=== PATIENT | female | born 1970 | race Caucasian/White ===

== ENCOUNTER 2024-08-08 18:05 | Emergency (ER) | payer OTHER, SELFPAY ==
--- NOTE | ~2024-08-08 | XR_ITS ---
EXAMINATION: XR ankle LT min 3V DATE: 08/08/2024 18:44 INDICATION: Generalized left ankle pain post fall TECHNIQUE: Anteroposterior, oblique, mortise, and lateral views of the left ankle were obtained. COMPARISON: None. FINDINGS: Oblique fracture through distal left ureter metadiaphysis with 4 mm lateral displacement. No other fr actures identified. Alignment is otherwise unremarkable with congruent ankle mortise. Joint spaces ar e relatively preserved. Small Achilles calcaneal spur. Soft tissue swelling about the ankle. No ankle joint effusion. IMPRESSION: 1. 4 mm lateral displacement of an oblique fracture of the distal left fibular metadiaphysis. Reviewed, dictated and finalized at location A. UND SALES ADVISOR
--- OUTSIDE RECORDS SUMMARY | 2024-08-08 18:13 | XMS_ITS | Clinical Summary ---
Author Organization [facility] Care Team Providers Care Table Runner Name Role Phone Unavailable Primary Care Provider Unavailabl e Social History Tobacco Use Types Packs/Day Years Used Date Smoking Tobacco: Never Assessed Comments Unknown Sex and Gender Information Value Date Recorded Sex Assigned at Not on file Legal Sex Female 1:32 PM COLLECTIONS AGENT Gender Identity Not on file Sexual Orientation Not on file Plan of Treatment Health Maintenance Due Date Last Done Comments Hepatitis C Virus (HCV) Screening 1969 Hepatitis B Immunization (1 of 3 - 19+ 3-dose series) 01/10/1988 Pap Smear 1990 Cervical Cancer Screening (CCS) 1999 HPV/Cotest 1999 Colonoscopy 2014 Colorectal Cancer Screening 2014 Cologuard 2019 Immunochemical Fecal Occult Blood 2019 Mammogram 2019 Pneumococcal Immunization (5 0+ years) (1 of 1 - PCV) 2019 Zoster Immunization (1 of 2) 2019 Influenza Immunization (#1) 2024 SARS-COV-2 Immunization ( - season) 2024 Respiratory Syncytial Virus (RSV) Immunization (Adult) (1 - 1-dose 75+ series) 01/10/2044 DTaP/Tdap/Td Immunization Discontinued 06/21/2019 TdaP Immunization Completed 06/21/2019 Meningococcal Immunization (ACWY) Aged Out No longer eligible based on patient's age to complete this topic Pneumococcal Immunization Combined Aged Out No longer eligible based on patient's age to complete this topic Rotavirus Immunization Aged Out No lo nger eligible based on patient's age to complete this topic
--- OUTSIDE RECORDS SUMMARY | 2024-08-08 18:13 | XMS_ITS | Patient Health Summary ---
Author Organization [facility] Address [address] [place] [address] Care Team Providers Care Pathology Laboratory Aides Teacher Name Role Phone Unavailable Primary Care Provider Unavailabl e Note from [facility],non-owned Affiliates and Associated Physician Practices is amultiple site organization consisting of ambulatory clinics and hospital sitesin [place], [place], [place] and [place]. This disclosure is being madepursuant to the Care Everywhere program and may not contain all information available regarding this patient. Last updated 18.[facility] Social History Tobacco Use Types Packs/Day Years Used Date Smoking Tobacco: Never Assessed Sex and Gender Information Value Date Recorded Sex Assigned at Not on file Gender Identity Not on file Sexual Orientation Not on file Procedures * DERMATOPATHOLOGY(Performed 11/27/2021) Results * DERMATOPATHOLOGY (11/27/2021 3:33 AM CDT) Case Report Dermatopathology Report Case: [id number] Authorizing Provider: Lito Samayoa MD Collected: 11/27/2021 03:33 AM Ordering Location: [facility] Lab Received: 11/28/2021 06:40 AM Pathologist: Lulu hWite MD Specimen: Skin, left wrist 2 4:01 PM CDT DERMATOPATHOLOGY LABORATORY Final Diagnosis Specimen A. SKIN, left wrist: EOSINOPHILIC SPONGIOSIS AND PAPILLARY DERMAL EDEMA (L30.8) (see microscopic description and comment) 2 4:01 PM CDT DERMATOPATHOLOGY LABORATORY Clinical History BP vs. ACD vs. Other. Path# [id number] 2 4:01 PM CDT DERMATOPATHOLOGY LABORATORY Gross Description Specimen A: Received is one formalin filled container labeled with the patient's name and designated left wrist. The specimen consists of a shave biopsy measuring [id number]. Jar 0. 2 4:01 PM T DERMATOPATHOLOGY LABORATORY Microscopic Description Specimen A. SKIN, left wrist: There is focal parakeratosis and spongiosis. The dermis shows a superficial and deep, perivascular and interstitial infiltrate of lymphocytes and eosinophils. Many of the eosinophils are present in the papillary dermis and occasional eosinophils are noted within the epidermis. There is significant papillary dermal edema. Grocott's methenamine silver (GMS) stain is negative for fungal elements in the sections examined. COMMENT: The histological differential diagnosis includes contact dermatitis, nummular eczema, arthropod bite reaction, the urticarial phase of bullous pemphigoid, and a hypersensitivity reaction. If there is clinical concern for a diagnosis of bullous pemphigoid consideration should be given to submitting tissue for direct immunofluorescence. 2 4:01 PM T DERMATOPATHOLOGY LABORATORY Disclaimer An external and internal positive and negative controls are appropriate for the histochemical, immunohistochemical and immunofluorescence stain(s) in this case (if any), except where stated explicitly. The performance characteristics of the stain(s) cited in this report were developed and its performance characteristic determined by the Dermatopathology Laboratory at [facility], directed by Dr. Stephanie Worley. These tests need not be, and therefore are not, approved by the [place] Food and Drug Administration. The tests are used for clinical purposes. Billing Codes Specimen Charges Stain Charges 31070 1 95634 1 2 4:01 PM CDT DERMATOPATHOLOGY LABORATORY Embedded Images 2 4:01 PM CDT DERMATOPATHOLOGY LABORATORY Pathology/Cytolo gy TISSUE SPECIMEN FROM SKIN / Unknown 11/27/2021 3:33 AM CDT 11/28/2021 6:40 AM CDT Lito Samayoa MD LAB - PATHOLOGY/CYTO LOGY ORDERABLES DERMATOPATHOLOGY LABORATORY [facility] - Department of Dermatology [address], [address] [phone]
--- OUTSIDE RECORDS SUMMARY | 2024-08-08 18:13 | XMS_ITS | Referral Summary ---
Author Organization [facility] Address [address] [facility] [place] [address] Care Team Providers Care Production Engine Repairer Name Role Phone Unavailable Primary Care Provider Unavailabl e Source Comments [facility] and Associated Physician Practices is amultiple site organization consisting of ambulatory clinics and hospital sitesin [place], [place], [place] and [place]. This disclosure is being madepursuant to the Care Everywhere program and may not contain all information available regarding this patient. Last updated 18.[facility] [employer] Social History Tobacco Use Types Packs/Day Years Used Date Smoking Tobacco: Never Assessed Sex and Gender Information Value Date Recorded Sex Assigned at Not on file Gender Identity Not on file Sexual Orientation Not on file Plan of Treatment Not on file
--- OUTSIDE RECORDS SUMMARY | 2024-08-08 18:13 | XMS_ITS | Clinical Summary ---
Author Organization [email or web address] Address [address] [place] [address] Care Team Providers Care Urban Gardening Specialist Name Role Phone Unavailable Primary Care Provider Unavailabl e Source Comments [email or web address],non-owned Affiliates and Associated Physician Practices is amultiple site organization consisting of ambulatory clinics and hospital sitesin [place], [place], [place] and [place]. This disclosure is being madepursuant to the Care Everywhere program and may not contain all information available regarding this patient. Last updated 18.[facility] Social History Tobacco Use Types Packs/Day Years Used Date Smoking Tobacco: Never Assessed Sex and Gender Information Value Date Recorded Sex Assigned at Not on file Gender Identity Not on file Sexual Orientation Not on file Plan of Treatment Health Maintenance Due Date Last Done Comments COLOGUARD (AGES 45-75) - COL ON CA SCREENING 1969 COLON MONITORING 1969 COLONOSCOPY - COLON CA SCREENING 1969 CT COLONOGRAPHY - COLON CA SCREENING 1969 Colorectal Cancer Screening 1969 FIT - COLON CA SCREENING 1969 FLEX SIG - COLON CA SCREENING 1969 LIPID TESTING 1969 MAMMOGRAM 1969 PAP SMEAR 1969 HIV SCREENING 01/10/1984 HEPATITIS C SCREENING 01/05/1987 DTAP/TDAP/TD VACCINES (1 - Tdap) 01/10/1988 HEPATITIS B VACCINE (1 of 3 - 19+ 3-dose series) 01/10/1988 PNEUMOCOCCAL VACCINE 50+ (1 of 1 - PCV) 2019 ZOSTER VACCINE (1 of 2) 2019 COVID-19 VACCINE ( - 2023-2 5 season) 2024 INFLUENZA VACCINE (#1) 2024 DEPRESSION SCREENING 06/23/2024 HIB VACCINE Aged Out No longer eligi ble based on patient's age to complete this topic HPV VACCINE Aged Out No longer eligi ble based on patient's age to complete this topic MENINGOCOCCAL (Group B) VACCINE Aged Out No longer eligible based on patient's age to complete this topic MENINGOCOCCAL VACCINE Aged Out No nila beth eligible based on patient's age to complete this topic PNEUMOCOCCAL VACCINE Aged Out No long er eligible based on patient's age to complete this topic
--- OUTSIDE RECORDS SUMMARY | 2024-08-08 18:13 | XMS_ITS | Encounter Summary ---
Author Organization [facility] Address [address] [facility] [place] [address] Care Team Providers Care Electrical Assembly Supervisor Name Role Phone Unavailable Primary Care Provider Unavailabl e Encounter Details Date Type Department Care Team (Late st Contact Info) Description 11/28/2021 Lab Requisition [facility] [address] [facility] [place] [phone] Lito Samayoa MD [id number] [place] [id number] Social History Tobacco Use Types Packs/Day Years Used Date Smoking Tobacco: Never Assessed Sex and Gender Information Value Date Recorded Sex Assigned at Not on file Gender Identity Not on file Sexual Orientation Not on file documented as of this encounter Plan of Treatment Not on file documented as of this encounter Procedures Procedure Name Priority Date/Time Associated Diagnosis Comments DERMATOPATHOLOGY Routine 11/27/2021 3:33 AM CDT documented in this encounter Results * DERMATOPATHOLOGY (11/27/2021 3:33 AM CDT) Case Report Dermatopathology Report Case: [id number] Authorizing Provider: Lito Samayoa MD Collected: 11/27/2021 03:33 AM Ordering Location: [facility] Received: 11/28/2021 06:40 AM Pathologist: Lulu White MD Specimen: Skin, left wrist 2 4:01 PM CDT DERMATOPATHOLOGY LABORATORY Final Diagnosis Specimen A. SKIN, left wrist: EOSINOPHILIC SPONGIOSIS AND PAPILLARY DERMAL EDEMA (L30.8) (see microscopic description and comment) 2 4:01 PM CDT DERMATOPATHOLOGY LABORATORY Clinical History BP vs. ACD vs. Other. Path# [id number] 2 4:01 PM T DERMATOPATHOLOGY LABORATORY Gross Description Specimen A: Received is one formalin filled container labeled with the patient's name and designated left wrist. The specimen consists of a shave biopsy measuring [id number]. Jar 0. 2 4:01 PM [facility] DERMATOPATHOLOGY LABORATORY Microscopic Description Specimen A. SKIN, [...] tissue for direct immunofluorescence. 2 4:01 PM [facility] DERMATOPATHOLOGY LABORATORY Disclaimer An external and internal positive and negative controls are appropriate for the histochemical, immunohistochemical and immunofluorescence stain(s) in this case (if any), except where stated explicitly. The performance characteristics of the stain(s) cited in this report were developed and its performance characteristic determined by the Dermatopathology Laboratory at [facility], directed by Dr. Stephanie Worley. These tests need not be, and therefore are not, approved by the [place] Food and Drug Administration. The tests are used for clinical purposes. Billing Codes Specimen Charges Stain Charges 42670 1 21238 1 2 4:01 PM CDT DERMATOPATHOLOGY LABORATORY Embedded Images 2 4:01 PM T DERMATOPATHOLOGY LABORATORY Pathology/Cytolo gy TISSUE SPECIMEN FROM SKIN / Unknown 11/27/2021 3:33 AM CDT 11/28/2021 6:40 AM CDT Lito Samayoa MD LAB - PATHOLOGY/CYTO LOGY ORDERABLES DERMATOPATHOLOGY LABORATORY [facility] - Department of Dermatology [address] [phone] documented in this encounter Visit Diagnoses Not on filedocumented in this encounter
--- OUTSIDE RECORDS SUMMARY | 2024-08-08 18:13 | XMS_ITS | Referral Summary ---
Author Organization [facility] [address] [facility] Address [address] [place] [address] Care Team Providers Care Process Control Supervisor Name Role Phone Carlos Eduardo Fox MD Primary Care Provider [phone] Allergies No known active allergies Medications meclizine (ANTIVERT) 25 mg tablet Take 1 tablet (25 mg total) by mouth 3 (three) times a day as needed for dizziness 30 tablet 11/20/19 23 Active atorvastatin (LIPITOR) 10 mg tabletIndications:Pure hypercholesterolemia Take 1 tablet (10 mg total) by mouth daily 90 tablet 4 07/28/19 24 Active Active Problems Problem Noted Date Diagnosed Date Class 1 obesity due to exces s calories without serious comorbidity with body mass index (BMI) of 32.0 to 32.9 in adult 07/22/2023 Assessment & Plan (07/22/2023 2:24 PM HEEL SCOURER): Weight is stable, encouraged healthy diet and regular exercise. Encounter to establish care 07/22/2023 Assessment & Plan (07/22/2023 2:26 PM HEEL SCOURER): Encounter to reestablish care, updated/reviewed medical history. Reviewed recommended screenings and vaccinations. -declines mammogram, see discussion above -no history of colon cancer screening, agreeable to C scope and referral placed. -encouraged patient to schedule well-woman/Pap for cervical cancer screening Benign paroxysmal positional vertigo due to bilateral vestibular disorder 07/22/2023 Assessment & Plan (07/22/2023 2:27 PM HEEL SCOURER): Symptoms are improved at this time, some vertigo symptoms when rolling in bed. Has not required meclizine recently. States that meclizine works very well for her when needed. Recommended she perform exercises periodically, Ha maneuver at home before going to bed and also in the morning. Briefly discussed benefits of physical therapy if symptoms return, patient will notify office with any updates or changes. Mammogram declined 07/22/2023 Assessment & Plan (07/22/2023 2:30 PM HEEL SCOURER): Patient has never had screening mammogram, states that she would treat breast cancer if diagnosed. She is concerned about compression being painful. States that she has always had a history tender/sensitive breasts. Explained that 3D/CT screenings without compression are available but are likely not covered by insurance but it would not hurt to clarify this. Also offered to prescribe anxiolytic prior to completing mammogram if needed. Patient would like to think about this and will notify the office if she decides to proceed with mammogram. Refused influenza vaccine 06/06/2020 Assessment & Plan (06/06/2020 3:31 PM HEEL SCOURER): Discussed and the patient refuses immunization today. Educated regarding the need to vaccinate for personal protection and to limit the viruses in the community to protect those most vulnerable. Colon cancer screening 06/06/2020 Assessment & Plan (07/22/2023 2:25 PM HEEL SCOURER): Agreeable today to colonoscopy, place referral to GI. No known family history of colorectal cancer. Assessment & Plan (06/06/2020 3:31 PM HEEL SCOURER): Refuses colonoscopy; aware that it is gold standard for CRC screening. Agreeable to cologuard. Aware that cologuard kit will be mailed with directions. To call if no results rec'd 1-2 weeks after kit mailed back for completion of test. BMI 30.0-30.9,adult 06/06/2020 Assessment & Plan (06/06/2020 3:31 PM HEEL SCOURER): Reviewed need to lose weight, reviewed health benefits. Reviewed recommendations for daily intake & activity 20-30 minutes/day. Discussed healthy diet and importance of regular physical activity. Screening for diabetes mellitus 06/06/2020 Assessment & Plan (06/06/2020 3:32 PM HEEL SCOURER): a1c ordered. Will contact w/results once rec'd. Will sign up for [employer]. Aware that she will be able to see results in her [employer] account. Encounter for screening for lipoid disorders Assessment & Plan (06/06/2020 3:31 PM HEEL SCOURER): Lipid panel ordered; will call w/results when received. Reviewed diet/exercise recommendations. Annual physical exam 06/06/2020 Assessment & Plan (06/06/2020 3:30 PM HEEL SCOURER): 1. Eat a healthy diet: focus on lean meats and proteins, more fruits, vegetables and whole grains and low in sugars and fats. Limit red meat and avoid processed meat. 2. Maintain a healthy weight; avoid being overweight. Aim for a normal body mass index (BMI) of 18.5-24.9. Help learning to eat healthier, we can set up appointment with bee producer/certified fraud examiner. 3. Have an active lifestyle, strive for 30 minutes of moderate exercise 5 times a week and strength or resistance training at least twice a week. 4. Use broad-spectrum (UVA+UVB) sunscreen with SPF 30 or greater, is water resistant, limit time spent in the sun (10 am-4pm), wear hat, wear UV protective clothing, wear sunglasses. Never use a tanning bed. Skin that was irradiated may be more sensitive over your lifetime. 5. Does smoke; declines to participate in a smoking cessation program. 6. Limit alcohol intake, 1 drink per day for a woman. Anxiety and depression 11/13/2017 Tobacco dependence 10/10/2017 Assessment & Plan (07/22/2023 2:24 PM HEEL SCOURER): Encouraged complete cessation. Offered CT lung cancer screening, patient declines at this time we will consider in the future. Assessment & Plan (06/06/2020 3:32 PM HEEL SCOURER): Reviewed need to lose weight, reviewed health benefits. Reviewed recommendations for daily intake & activity 20-30 minutes/day. Discussed healthy diet and importance of regular physical activity. Immunizations Immunization Administration Dates Next Due Influenza, Unspecified 07/22/2023(Deferr ed: Patient Refused),03/23/2023(Deferred: Patient Refused),03/23/2022(Deferred: Patient Refused),06/06/2020(Deferred: Patient Refused),06/23/2019(Deferred: Patient Refused),06/24/2016(Deferred: Patient Refused) Tdap 06/21/2019 Social History Tobacco Use Types Packs/Day Years Used Date Smoking Tobacco: Heavy Smoker Cigarettes 1 20 Smokeless Tobacco: Never Tobacco Cessation:Ready to Q uit: Not Asked; Counseling Given: Not Answered Comments:Smoking History Packs/day: 1 Packs Alcohol Use Standard Drinks/Week Comments Yes 0 (1 standard drink = 0.6 oz pur e alcohol) occasionally beer PHQ-2 Answer Date Recorded PHQ-2 Total Score (If total score is 3 or more points, staff should administer the PHQ-9) 0 07/22/2023 Personal Safety Answer Date Recorded Getting School Help Needed Not on file 07/16 Comments Unknown Sex and Gender Information Value Date Recorded Sex Assigned at Not on file Legal Sex Female 4:30 PM HEEL SCOURER Gender Identity Female 07/22/2023 8:03 AM HEEL SCOURER Sexual Orientation Not on file Last Filed Vital Signs Vital Sign Reading Time Taken Comments Blood Pressure 122/84 07/22/2023 1:51 PM HEEL SCOURER Pulse 80 07/22/2023 1:51 PM HEEL SCOURER Temperature 36.5 C (97.7 F) 07/22/2023 1:51 PM HEEL SCOURER Respiratory Rate 17 07/22/2023 1:51 PM HEEL SCOURER Oxygen Saturation 99% 07/22/2023 1:51 PM HEEL SCOURER Inhaled Oxygen Concentration - - Weight 85.7 kg (189 lb) 07/22/2023 1:51 PM HEEL SCOURER Height 162.6 cm (5' 4.02 ) 07/22/2023 1:51 PM CS T Body Mass Index 32.43 07/22/2023 1:51 PM HEEL SCOURER Plan of Treatment Not on file Insurance [facility] CHO[facility] HMO/PPO Address: [address] [address] [place] [id number] CHOICE [facility] HMO/PPO Address: [address] [place] [phone] Care Teams Process Control Supervisor Relationship Specialty Start Date End Date Carlos Eduardo [place] [address] PCP - General 06/10/16
--- OUTSIDE RECORDS SUMMARY | 2024-08-08 18:13 | XMS_ITS | Clinical Summary ---
Author Organization [facility] [place] 155 [facility] Address [address] [place] [address] Care Team Providers Care Watch Assembly Inspector Name Role Phone Carlos Eduardo Fox MD Primary Care Provider [phone] Allergies No known active allergies Medications meclizine [...] 07/22/2023 Assessment & Plan (07/22/2023 2:24 PM COMMAND AND CONTROL OFFICER): Weight is stable, encouraged healthy diet and regular exercise. Encounter to establish care 07/22/2023 Assessment & Plan (07/22/2023 2:26 PM COMMAND AND CONTROL OFFICER): Encounter to reestablish care, updated/reviewed medical history. Reviewed recommended screenings and vaccinations. -declines mammogram, see discussion above -no history of colon cancer screening, agreeable to C scope and referral placed. -encouraged patient to schedule well-woman/Pap for cervical cancer screening Benign paroxysmal positional vertigo due to bilateral vestibular disorder 07/22/2023 Assessment & Plan (07/22/2023 2:27 PM COMMAND AND CONTROL OFFICER): Symptoms are improved at this time, some vertigo symptoms when rolling in bed. Has not required meclizine recently. States that meclizine works very well for her when needed. Recommended she perform exercises periodically, Ah maneuver at home before going to bed and also in the morning. Briefly discussed benefits of physical therapy if symptoms return, patient will notify office with any updates or changes. Mammogram declined 07/22/2023 Assessment & Plan (07/22/2023 2:30 PM COMMAND AND CONTROL OFFICER): Patient has never had screening mammogram, states [...] 06/06/2020 Assessment & Plan (06/06/2020 3:31 PM COMMAND AND CONTROL OFFICER): Discussed and the patient refuses immunization today. Educated regarding the need to vaccinate for personal protection and to limit the viruses in the community to protect those most vulnerable. Colon cancer screening 06/06/2020 Assessment & Plan (07/22/2023 2:25 PM COMMAND AND CONTROL OFFICER): Agreeable today to colonoscopy, place referral to GI. No known family history of colorectal cancer. Assessment & Plan (06/06/2020 3:31 PM COMMAND AND CONTROL OFFICER): Refuses colonoscopy; aware that it is gold standard for CRC screening. Agreeable to cologuard. Aware that cologuard kit will be mailed with directions. To call if no results rec'd 1-2 weeks after kit mailed back for completion of test. BMI 30.0-30.9,adult 06/06/2020 Assessment & Plan (06/06/2020 3:31 PM COMMAND AND CONTROL OFFICER): Reviewed need to lose weight, reviewed health benefits. Reviewed recommendations for daily intake & activity 20-30 minutes/day. Discussed healthy diet and importance of regular physical activity. Screening for diabetes mellitus 06/06/2020 Assessment & Plan (06/06/2020 3:32 PM COMMAND AND CONTROL OFFICER): a1c ordered. Will contact w/results once rec'd. Will sign up for [employer]. Aware that she will be able to see results in her [employer] account. Encounter for screening for lipoid disorders Assessment & Plan (06/06/2020 3:31 PM COMMAND AND CONTROL OFFICER): Lipid panel ordered; will call w/results when received. Reviewed diet/exercise recommendations. Annual physical exam 06/06/2020 Assessment & Plan (06/06/2020 3:30 PM COMMAND AND CONTROL OFFICER): 1. Eat a healthy diet: focus on lean meats and proteins, more fruits, vegetables and whole grains and low in sugars and fats. Limit red meat and avoid processed meat. 2. Maintain a healthy weight; avoid being overweight. Aim for a normal body mass index (BMI) of 18.5-24.9. Help learning to eat healthier, we can set up appointment with foreign exchange student coordinator/motorboat operator. 3. Have an active lifestyle, strive for [...] 10/10/2017 Assessment & Plan (07/22/2023 2:24 PM COMMAND AND CONTROL OFFICER): Encouraged complete cessation. Offered CT lung cancer screening, patient declines at this time we will consider in the future. Assessment & Plan (06/06/2020 3:32 PM COMMAND AND CONTROL OFFICER): Reviewed need to lose weight, reviewed health benefits. Reviewed recommendations for daily intake & activity 20-30 minutes/day. Discussed healthy diet and importance of regular physical activity. Immunizations Immunization Administration Dates Next Due Influenza, Unspecified 07/22/2023(Deferr ed: Patient Refused),03/23/2023(Deferred: Patient Refused),03/23/2022(Deferred: Patient Refused),06/06/2020(Deferred: Patient Refused),06/23/2019(Deferred: Patient Refused),06/24/2016(Deferred: Patient Refused) Tdap 06/21/2019 Surgical History Surgery Date Site/Laterality Comments OTHER SURGICAL HISTORY No pertinent surgical hx Medical History Medical History Date Comments No pertinent past medical history Family History Medical History Relation Name Comments Heart disease Father Heart disease; Hyperlipidemia Mother High choleste rol; Hypertension Mother Hypertension; Stroke Mother Stroke; Relation Name Status Comments Father Alive Mother Alive Social History Tobacco Use Types Packs/Day Years [...] on file Legal Sex Female 4:30 PM COMMAND AND CONTROL OFFICER Gender Identity Female 07/22/2023 8:03 AM COMMAND AND CONTROL OFFICER Sexual Orientation Not on file Obstetrics History Last Filed Vital Signs Vital Sign Reading Time Taken Comments Blood Pressure 122/84 07/22/2023 1:51 PM COMMAND AND CONTROL OFFICER Pulse 80 07/22/2023 1:51 PM COMMAND AND CONTROL OFFICER Temperature 36.5 C (97.7 F) 07/22/2023 1:51 PM COMMAND AND CONTROL OFFICER Respiratory Rate 17 07/22/2023 1:51 PM COMMAND AND CONTROL OFFICER Oxygen Saturation 99% 07/22/2023 1:51 PM COMMAND AND CONTROL OFFICER Inhaled Oxygen Concentration - - Weight 85.7 kg (189 lb) 07/22/2023 1:51 PM COMMAND AND CONTROL OFFICER Height 162.6 cm (5' 4.02 ) 07/22/2023 1:51 PM CS T Body Mass Index 32.43 07/22/2023 1:51 PM COMMAND AND CONTROL OFFICER Plan of Treatment Health Maintenance Due Date Last Done Comments Cervical Cancer Screening 1969 Colon Cancer Screening-DNA Stool 1969 Hepatitis C Screening 1969 Pneumococcal vaccine <65 (1 of 2 - PCV) 1975 Hepatitis B Screening 1987 Zoster Vaccine (1 of 2) 2019 Depression Screening 07/22/2024 07/22/2023, 06/06/2020, 10/10/2017, Additional history exists Regular Well Visit/Exam 18-64 07/22/2024 07/22/2023 DTaP/Tdap/Td Vaccine (2 - Td or Tdap) 06/21/2029 06/21/2019 Breast Cancer Screening-Mammogram Discontinued Influenza Vaccine Discontinued Insurance [facility] CHOICE PLUS CHOICE PLUS Care Teams Watch Assembly Inspector Relationship Specialty Start Date End Date Carlos Eduardo Fox MD [address] [place] [address] PCP - General 06/10/16
[2024-08-08 18:15] VITALS: BP 156/87; PULSE 117; RESP 16; TEMP 37.4; O2SAT 99
--- NOTE | 2024-08-08 18:34 | ED_ITS ---
HPI - General Adult General Chief complaint: Extremity Injury, Lower Stated complaint: Fall Injury/Left Ankle Source: patient Mode of arrival: wheelchair Limitations: no limitations History of Present Illness HPI narrative: Patient presents for evaluation after experiencing a fall just prior to arrival. She slipped on her deck outside, falling down 4-5 steps. She believes her left leg was caught beneath her. She denied her head. No loss of consciousness. She is not on blood thinners. She now reports 8/10 pain in the left ankle. Pain is primarily in the medial aspect of the ankle but she has some pain in the anterior and lateral aspects, although lower in those areas. She feels a clicking sensation. She has overlying abrasions, and reports bruising and swelling. She has not taken any medication for pain. Date of last tetanus is unknown. She is not diabetic. She is having difficulty bearing weight. Related Data Home Medications ?Medication ?Instructions ?Recorded ?Confirmed ?Last Taken ?Type atorvastatin 10 mg tablet mg 08/08/24 Unknown History Allergies Allergy/AdvReac Type Severity Reaction Status Date / Time No Known Allergies Allergy Verified 08/08/24 18:35 Review of Systems Review of Systems: CONSTITUTIONAL: Denies fever, chills, or sweats. EYES: Denies visual changes, redness, or discharge. ENT: Denies rhinorrhea, congestion, sore throat, or otalgia. CARDIOVASCULAR: Denies chest pain, palpitations, or edema. RESPIRATORY: Denies cough or dyspnea. GASTROINTESTINAL: Denies abdominal pain, nausea, vomiting, or diarrhea. GENITOURINARY: Denies dysuria or hematuria. SKIN: Reports abrasions and bruising to left ankle MUSCULOSKELETAL: Reports pain and swelling in the left ankle NEUROLOGIC: Denies headache, numbness, dizziness, or weakness. PSYCHIATRIC: Denies anxiety or depression. [facility] Past Medical History Medical History (Updated 08/08/24 @ 19:19 by Kimo Lozano, EULALIA, BC) No pertinent past medical history Surgical History Surgical History No pertinent past surgical history Family History Family History Mother Family history non-contributory Social History Social History Smoking packs per day: 1 Smoking cigarettes per day: 20.0 Smoking status: Current every day smoker Tobacco type: cigarettes Living arrangements: with family Gender identity (if verbalized by the patient): Female Spiritual care concerns: No Exam Narrative: GENERAL: Well-appearing, well-nourished, and in no acute distress. HEAD: Normocephalic, atraumatic. EYES: PERRLA and EOMI. ENT: Nares clear, no rhinorrhea or epistaxis. Mucous membranes moist. Oropharynx without tonsillar hypertrophy exudate or other lesions. Bilateral TMs pearly guerrero nonbulging NECK: Supple. No adenopathy or masses. No carotid bruits or JVD CHEST: Clear to auscultation. No respiratory distress. No wheezes rales or rhonchi HEART: Regular rate and rhythm. No murmur heard. Normal peripheral pulses. ABDOMEN: Soft, nontender, nondistended, normal active bowel sounds. EXTREMITIES: There is soft tissue swelling noted to the left ankle. Able to dorsi and plantarflex the left foot. There is tenderness over medial, anterior, lateral aspects of the left ankle SKIN: There are superficial abrasions with dried sanguinous drainage to the left ankle NEURO: No focal deficits. Alert and oriented x3. PSYCH: Normal mood and affect. Course Course Emergency Course: This is a 54-year-old female who presented for evaluation of an injury to left lower extremity following a fall. X-ray showed distal fibula fracture on the left. Dr. Persaud personally reviewed images and was in agreement with plans for splint, nonweightbearing status and follow up with him this week. Wound does not appear to communicate with the fracture is it is very superficial. She declined crutches as she has crutches available at home. Updated on tetanus. Tolerated splint placement well. Follow-up with Ortho tomorrow. Go to the emergency department for intractable pain or worsening symptoms. Patient in agreement with plan of care. Level of Care: Express Care Visit Vital Signs Vital signs: Vital Signs Temperature 37.4 C 08/08/24 18:15 Pulse Rate 117 H 08/08/24 18:15 Respiratory Rate 16 08/08/24 18:15 Blood Pressure 156/87 H 08/08/24 18:15 Pulse Oximetry 99 02/16/25 18:15 Oxygen Delivery Room Air 08/08/24 18:15 Temperature 37.4 C 08/08/24 18:15 Pulse Rate 117 H 08/08/24 18:15 Respiratory Rate 16 08/08/24 18:15 Blood Pressure 156/87 H 08/08/24 18:15 Pulse Oximetry 99 08/08/24 18:15 Oxygen Delivery Room Air 08/08/24 18:15 Procedures Orthopedic Splinting/Casting Injury #1: Splinting/Casting Date: 08/08/24 Splinting/Casting Time: 19:20 Side: left Lower Extremity Injury Location: ankle Lower Extremity Immobilizer: posterior splint Splint: customized in ED OCL: long leg Pre-Procedure Neuro Vascular Exam: normal Post-Procedure Neuro Vascular Exam: normal Medical Decision Making Vital Signs Vital Signs: Vital Signs Temperature 37.4 C 08/08/24 18:15 Pulse Rate 117 H 08/08/24 18:15 Respiratory Rate 16 08/08/24 18:15 Blood Pressure 156/87 H 08/08/24 18:15 Pulse Oximetry 99 08/08/24 18:15 Oxygen Delivery Room Air 08/08/24 18:15 Temperature 37.4 C 08/08/24 18:15 Pulse Rate 117 H 08/08/24 18:15 Respiratory Rate 16 08/08/24 18:15 Blood Pressure 156/87 H 08/08/24 18:15 Pulse Oximetry 99 08/08/24 18:15 Oxygen Delivery Room Air 08/08/24 18:15 Imaging Data Radiologist's impression: Ordering Physician: Kimo Lozano APRN Date of Service: 08/08/24 Procedure(s): XR ankle LT min 3V Accession Number(s): [id number] cc: Kimo Lozano APRN; Harms, Carlos Eduardo Matta MD~ EXAMINATION: XR ankle LT min 3V DATE: 08/08/2024 18:44 INDICATION: Generalized left ankle pain post fall TECHNIQUE: Anteroposterior, oblique, mortise, and lateral views of the left ankle were obtained. COMPARISON: None. FINDINGS: Oblique fracture through distal left ureter metadiaphysis with 4 mm lateral displacement. No other fractures identified. Alignment is otherwise unremarkable with congruent ankle mortise. Joint spaces are relatively preserved. Small Achilles calcaneal spur. Soft tissue swelling about the ankle. No ankle joint effusion. IMPRESSION: 1. 4 mm lateral displacement of an oblique fracture of the distal left fibular metadiaphysis. Discharge Plan Discharge Clinical Impression: Closed traumatic nondisplaced fracture of distal end of left fibula Patient Disposition: Home, Self-Care Condition: Stable Instructions: Antibiotic Form, Leg Fracture (ED) Additional Instructions: DO NOT PLACE ANY WEIGHT ON YOUR LEFT LEG PLEASE USE CRUTCHES TO MOBILIZE CALL DR PERSAUD FOR AN APPOINTMENT TOMORROW. Patient Language: Liberian Prescriptions: No Action atorvastatin 10 mg tablet Follow-up/Referrals: Amado Persaud MD [Physician] - Harms,Carlos Eduardo Matta M.D. [Primary Care Provider] - Stand Alone Forms: Work/School Release IP Time of Disposition: 19:19
[2024-08-08] MEDS: TETANUS,DIPHTHERIA,AC PERTUSSIS ADULT (0.5 ML) BOOSTRIX IM (19:01)
== END 2024-08-08 19:56 | disposition home or self-care (01) ==
PROVIDERS: Emergency Provider Nurse Practitioner; PCP Family Medicine
DX: S82.832A Other fracture of upper and lower end of left fibula, initial encounter for closed fracture (principal); W10.9XXA Fall (on) (from) unspecified stairs and steps, initial encounter; Z23 Encounter for immunization; F17.210 Nicotine dependence, cigarettes, uncomplicated
CPT/HCPCS: 29505; 73610; 90471; 90715; 99214; G0463

== ENCOUNTER 2024-08-11 00:41 | Day surgery (SDC) | payer OTHER, SELFPAY ==
[2024-08-09 15:49] VITALS: BMI 30.9
--- NOTE | 2024-08-09 15:57 | PC.NURSE ---
Report to the Outpatient Waiting Room, entrance under the green pavilion located off [facility], at time _1pm_ on date _[id number]_. Planned Procedure Time: _3pm_.? Time changes happen often and if your time is changed the preop area will call you the afternoon before. - You and your visitor will be asked to self-screen and do not enter if you have any COVID symptoms. Please call surgeon if you need to reschedule. - A mask is optional within the hospital at this time. Patients may have clear liquids (water, carbonated beverages, clear teas, apple juice) until 3 hours prior to surgery with a maximum of 20 ounces. - No food from midnight until time of surgery and no smoking, or chewing tobacco (or any form of nicotine). No chewing gum, candy or mints. Take only the following medications with a SIP of water on the morning of surgery: __Acetaminophen or narcotic pain med if have some if needed. (having trouble with [facility] getting Rx)____ DO NOT STOP ANY OF YOUR OTHER PRESCRIPTION MEDICATIONS PRIOR TO SURGERY EXCEPT THE FOLLOWING Hold all vitamins and supplements for 3 days per anesthesiologist. Medications to discontinue per physician ____Patient switching from aleve to tylenol for pain.____ Date to take last dose Please no make-up, nail kinyarwanda, hairspray, perfume, deodorant, or body powder the day of surgery.? No jewelry (including any body piercings) or valuables the day of surgery, leave them at home.? Please take a shower or bath the night before, or the morning of, surgery with an antibacterial soap.? Wear comfortable, loose fitting clothing.? - Jewelry must be removed prior to entering the operating room.? Rings and piercings that are not removed may be cut off. - The hospital will not accept responsibility for valuables.? - Please leave all valuables, including medications, at home the day of surgery. If you are going home after surgery, a licensed mail truck driver must drive you home.? - NO public transportation without another adult if you receive anesthesia. - We recommend that an adult stay with you for 24 hours following discharge. - We also recommend that you do not drive, make important decision, drink alcoholic beverages, or take any drugs that were not prescribed by your health care provider for at least 24 hours after your discharge time. Follow any additional instructions given to you from your surgeon. Telephone instructions given to __Inna__and asked if any additional questions and then verbalized understanding. Patient advised to call surgeon office or pre surgery nurse liaison [phone] if any additional questions.
[2024-08-11] VITALS (10 sets, daily range): BP systolic 94–152; BP diastolic 60–91; PULSE 74–93; RESP 12–18; TEMP 36.2; O2SAT 95–100; BMI 32.7
--- NOTE | ~2024-08-11 | XR_ITS ---
EXAMINATION: XR surgery orthopedic DATE: 08/11/2024 16:29 INDICATION: ORIF left ankle fracture TECHNIQUE: 2 fluoroscopic images of the left ankle were obtained during procedure performed by Dr. Skyler tamez. Radiologist was not present for the imaging or procedure. The amount of fluoroscopy time used during this procedure was 4.2 minutes. Total DAP was 2.096 mGycm^2 COMPARISON: 08/09/2024 FINDINGS: Interval reduction and lateral plate and screw fixation of the oblique fracture of the distal left fi bula. There is also been reduction with a now congruent ankle mortise of the prior lateral laterally subluxed tibiotalar articulation. This is fixed with a tightrope type syndesmotic fixation with metal lic button at the medial side of the lucent tunnel spanning the distal tibia and fibula. No new fract ures identified. Joint spaces are normal. IMPRESSION: 1. Near-anatomic alignment post open reduction internal fixation of a fracture of the distal tibia an d associated ankle subluxation. See procedure note for further detail. Reviewed, dictated and finalized at location A. THESIOLOGIST IMPRESSION: 1. Near-anatomic alignment post open reduction internal fixation of a fracture of the distal tibia and associated ankle subluxation. See procedure note for fu rther detail.
--- OUTSIDE RECORDS SUMMARY | 2024-08-11 00:46 | XMS_ITS | Referral Summary ---
Author Organization [facility] Address [address] [place] [address] Care Team Providers Care Splicing Machine Operator Automatic Name Role Phone Unavailable Primary Care Provider Unavailabl e Source Comments [facility] and Associated [facility]ician Practices is amultiple site organization consisting of ambulatory clinics and hospital sitesin [place], [place]. This disclosure is being madepursuant to the Care Everywhere program and may not contain all information available regarding this patient. Last updated 18.[facility] [employer] Social History Tobacco Use Types Packs/Day Years Used Date Smoking Tobacco: Never Assessed Sex and Gender Information Value Date Recorded Sex Assigned at Not on file Gender Identity Not on file Sexual Orientation Not on file Plan of Treatment Not on file
--- OUTSIDE RECORDS SUMMARY | 2024-08-11 00:46 | XMS_ITS | Clinical Summary ---
Author Organization [facility] [place] [address] [facility] Address [address] [place] [address] Care Team Providers Care Geospatial Developer Name Role Phone Carlos Eduardo Fox MD Primary Care Provider [phone] Allergies No known active allergies Medications meclizine [...] 07/22/2023 Assessment & Plan (07/22/2023 2:24 PM KEYING MACHINE OPERATOR): Weight is stable, encouraged healthy diet and regular exercise. Encounter to establish care 07/22/2023 Assessment & Plan (07/22/2023 2:26 PM KEYING MACHINE OPERATOR): Encounter to reestablish care, updated/reviewed medical history. Reviewed recommended screenings and vaccinations. -declines mammogram, see discussion above -no history of colon cancer screening, agreeable to C scope and referral placed. -encouraged patient to schedule well-woman/Pap for cervical cancer screening Benign paroxysmal positional vertigo due to bilateral vestibular disorder 07/22/2023 Assessment & Plan (07/22/2023 2:27 PM KEYING MACHINE OPERATOR): Symptoms are improved at this time, some [...] 07/22/2023 Assessment & Plan (07/22/2023 2:30 PM KEYING MACHINE OPERATOR): Patient has never had screening mammogram, states [...] 06/06/2020 Assessment & Plan (06/06/2020 3:31 PM KEYING MACHINE OPERATOR): Discussed and the patient refuses immunization today. Educated regarding the need to vaccinate for personal protection and to limit the viruses in the community to protect those most vulnerable. Colon cancer screening 06/06/2020 Assessment & Plan (07/22/2023 2:25 PM KEYING MACHINE OPERATOR): Agreeable today to colonoscopy, place referral to GI. No known family history of colorectal cancer. Assessment & Plan (06/06/2020 3:31 PM KEYING MACHINE OPERATOR): Refuses colonoscopy; aware that it is gold standard for CRC screening. Agreeable to cologuard. Aware that cologuard kit will be mailed with directions. To call if no results rec'd 1-2 weeks after kit mailed back for completion of test. BMI 30.0-30.9,adult 06/06/2020 Assessment & Plan (06/06/2020 3:31 PM KEYING MACHINE OPERATOR): Reviewed need to lose weight, reviewed health benefits. Reviewed recommendations for daily intake & activity 20-30 minutes/day. Discussed healthy diet and importance of regular physical activity. Screening for diabetes mellitus 06/06/2020 Assessment & Plan (06/06/2020 3:32 PM KEYING MACHINE OPERATOR): a1c ordered. Will contact w/results once rec'd. Will sign up for [employer]. Aware that she will be able to see results in her [employer] account. Encounter for screening for lipoid disorders Assessment & Plan (06/06/2020 3:31 PM KEYING MACHINE OPERATOR): Lipid panel ordered; will call w/results when received. Reviewed diet/exercise recommendations. Annual physical exam 06/06/2020 Assessment & Plan (06/06/2020 3:30 PM KEYING MACHINE OPERATOR): 1. Eat a healthy diet: focus on lean meats and proteins, more fruits, vegetables and whole grains and low in sugars and fats. Limit red meat and avoid processed meat. 2. Maintain a healthy weight; avoid being overweight. Aim for a normal body mass index (BMI) of 18.5-24.9. Help learning to eat healthier, we can set up appointment with spray i painter/service desk team lead. 3. Have an active lifestyle, strive for [...] 10/10/2017 Assessment & Plan (07/22/2023 2:24 PM KEYING MACHINE OPERATOR): Encouraged complete cessation. Offered CT lung cancer screening, patient declines at this time we will consider in the future. Assessment & Plan (06/06/2020 3:32 PM KEYING MACHINE OPERATOR): Reviewed need to lose weight, reviewed health [...] on file Legal Sex Female 4:30 PM KEYING MACHINE OPERATOR Gender Identity Female 07/22/2023 8:03 AM KEYING MACHINE OPERATOR Sexual Orientation Not on file Obstetrics History Last Filed Vital Signs Vital Sign Reading Time Taken Comments Blood Pressure 122/84 07/22/2023 1:51 PM KEYING MACHINE OPERATOR Pulse 80 07/22/2023 1:51 PM KEYING MACHINE OPERATOR Temperature 36.5 C (97.7 F) 07/22/2023 1:51 PM KEYING MACHINE OPERATOR Respiratory Rate 17 07/22/2023 1:51 PM KEYING MACHINE OPERATOR Oxygen Saturation 99% 07/22/2023 1:51 PM KEYING MACHINE OPERATOR Inhaled Oxygen Concentration - - Weight 85.7 kg (189 lb) 07/22/2023 1:51 PM KEYING MACHINE OPERATOR Height 162.6 cm (5' 4.02 ) 07/22/2023 1:51 PM CS T Body Mass Index 32.43 07/22/2023 1:51 PM KEYING MACHINE OPERATOR Plan of Treatment Health Maintenance Due Date Last Done Comments Cervical Cancer Screening 1969 Colon Cancer Screening-DNA Stool 1969 Hepatitis C Screening 1969 Hepatitis B Screening 1987 Pneumococcal vaccine <65 (1 of 2 - PCV) 01/10/1988 Zoster Vaccine (1 of 2) 2019 Depression Screening 07/22/2024 07/22/2023, 06/06/2020, 10/10/2017, Additional history exists Regular Well Visit/Exam 18-64 07/22/2024 07/22/2023 DTaP/Tdap/Td Vaccine (3 - Td or Tdap) 08/08/2034 08/08/2024, 06/21/2019 Breast Cancer Screening-Mammogram Discontinued Influenza Vaccine Discontinued Insurance [facility] CHOICE PLUS CHOICE PLUS Care Teams Geospatial Developer Relationship Specialty Start Date End Date Carlos Eduardo Fox MD [address] [place] [address] PCP - General 06/10/16
--- OUTSIDE RECORDS SUMMARY | 2024-08-11 00:46 | XMS_ITS | Clinical Summary ---
Author Organization [facility] Address [address] [place] [address] Care Team Providers Care Golf Cart Attendant Name Role Phone Unavailable Primary Care Provider Unavailabl e Source Comments [facility],non-owned Affiliates and Associated Physician Practices is amultiple site organization consisting of ambulatory clinics and hospital sitesin [place], [place], [place] and [place]. This disclosure is being madepursuant to the Care Everywhere program and may not contain all information available regarding this patient. Last updated 18.[facility] Social History Tobacco Use Types Packs/Day Years [...]
--- OUTSIDE RECORDS SUMMARY | 2024-08-11 00:46 | XMS_ITS | Patient Health Summary ---
Author Organization [facility] [employer] Address [address] [place] [address] Care Team Providers Care Impersonator Character Name Role Phone Unavailable Primary Care Provider Unavailabl e Note from [facility] [employer],non-owned Affiliates and Associated Physician Practices is amultiple site organization consisting of ambulatory clinics and hospital sitesin [place], [place], [place] and [place]. This disclosure is being madepursuant to the Care Everywhere program and may not contain all information available regarding this patient. Last updated 18.[facility] [employer] Social History Tobacco Use Types Packs/Day Years Used Date Smoking Tobacco: Never Assessed Sex and Gender Information Value Date Recorded Sex Assigned at Not on file Gender Identity Not on file Sexual Orientation Not on file Procedures * DERMATOPATHOLOGY(Performed 11/27/2021) Results * DERMATOPATHOLOGY (11/27/2021 3:33 AM CDT) Case Report Dermatopathology Report Case: [id number] Authorizing Provider: Lito Samayoa MD Collected: 11/27/2021 03:33 AM Ordering Location: [facility] DermPath Lab Received: 11/28/2021 06:40 AM Pathologist: Lulu White MD Specimen: Skin, left wrist 2 4:01 PM CDT DERMATOPATHOLOGY LABORATORY Final Diagnosis Specimen A. SKIN, left wrist: EOSINOPHILIC SPONGIOSIS AND PAPILLARY DERMAL EDEMA (L30.8) (see microscopic description and comment) 2 4:01 PM CDT DERMATOPATHOLOGY LABORATORY Clinical History BP vs. ACD vs. Other. Path# [id number] 2 4:01 PM CDT DERMATOPATHOLOGY LABORATORY Gross Description Specimen A: Received is one formalin filled container labeled with the patient's name and designated left wrist. The specimen consists of a shave biopsy measuring [id number]. Jar 0. 2 4:01 PM T DERMATOPATHOLOGY [...] characteristic determined by the Dermatopathology Laboratory at [facility], directed by Dr. Stephanie Worley. These tests need not be, and therefore are not, approved by the [place] Food and Drug Administration. The tests are used for clinical purposes. Billing Codes Specimen Charges Stain Charges 98893 1 [id number] 1 2 4:01 PM CDT DERMATOPATHOLOGY LABORATORY Embedded Images 2 4:01 PM CDT DERMATOPATHOLOGY LABORATORY Pathology/Cytolo gy TISSUE SPECIMEN FROM SKIN / Unknown 11/27/2021 3:33 AM CDT 11/28/2021 6:40 AM CDT Lito Samayoa MD LAB - PATHOLOGY/CYTO LOGY ORDERABLES DERMATOPATHOLOGY LABORATORY [facility] - Department of Dermatology [address], [address] [phone]
--- OUTSIDE RECORDS SUMMARY | 2024-08-11 00:46 | XMS_ITS | Referral Summary ---
Author Organization [facility] [address] [facility] Address [address] [place] [address] Care Team Providers Care Belt Maker Helper Name Role Phone Carlos Eduardo Fox MD Primary Care Provider [phone] Allergies No known active allergies Medications meclizine [...] 07/22/2023 Assessment & Plan (07/22/2023 2:24 PM PATIENT SCHEDULER): Weight is stable, encouraged healthy diet and regular exercise. Encounter to establish care 07/22/2023 Assessment & Plan (07/22/2023 2:26 PM PATIENT SCHEDULER): Encounter to reestablish care, updated/reviewed medical history. Reviewed recommended screenings and vaccinations. -declines mammogram, see discussion above -no history of colon cancer screening, agreeable to C scope and referral placed. -encouraged patient to schedule well-woman/Pap for cervical cancer screening Benign paroxysmal positional vertigo due to bilateral vestibular disorder 07/22/2023 Assessment & Plan (07/22/2023 2:27 PM PATIENT SCHEDULER): Symptoms are improved at this time, some [...] 07/22/2023 Assessment & Plan (07/22/2023 2:30 PM PATIENT SCHEDULER): Patient has never had screening mammogram, states [...] 06/06/2020 Assessment & Plan (06/06/2020 3:31 PM PATIENT SCHEDULER): Discussed and the patient refuses immunization today. Educated regarding the need to vaccinate for personal protection and to limit the viruses in the community to protect those most vulnerable. Colon cancer screening 06/06/2020 Assessment & Plan (07/22/2023 2:25 PM PATIENT SCHEDULER): Agreeable today to colonoscopy, place referral to GI. No known family history of colorectal cancer. Assessment & Plan (06/06/2020 3:31 PM PATIENT SCHEDULER): Refuses colonoscopy; aware that it is gold standard for CRC screening. Agreeable to cologuard. Aware that cologuard kit will be mailed with directions. To call if no results rec'd 1-2 weeks after kit mailed back for completion of test. BMI 30.0-30.9,adult 06/06/2020 Assessment & Plan (06/06/2020 3:31 PM PATIENT SCHEDULER): Reviewed need to lose weight, reviewed health benefits. Reviewed recommendations for daily intake & activity 20-30 minutes/day. Discussed healthy diet and importance of regular physical activity. Screening for diabetes mellitus 06/06/2020 Assessment & Plan (06/06/2020 3:32 PM PATIENT SCHEDULER): a1c ordered. Will contact w/results once rec'd. Will sign up for [employer]. Aware that she will be able to see results in her [employer] account. Encounter for screening for lipoid disorders Assessment & Plan (06/06/2020 3:31 PM PATIENT SCHEDULER): Lipid panel ordered; will call w/results when received. Reviewed diet/exercise recommendations. Annual physical exam 06/06/2020 Assessment & Plan (06/06/2020 3:30 PM PATIENT SCHEDULER): 1. Eat a healthy diet: focus on lean meats and proteins, more fruits, vegetables and whole grains and low in sugars and fats. Limit red meat and avoid processed meat. 2. Maintain a healthy weight; avoid being overweight. Aim for a normal body mass index (BMI) of 18.5-24.9. Help learning to eat healthier, we can set up appointment with tax associate/poker machine attendant. 3. Have an active lifestyle, strive for [...] 10/10/2017 Assessment & Plan (07/22/2023 2:24 PM PATIENT SCHEDULER): Encouraged complete cessation. Offered CT lung cancer screening, patient declines at this time we will consider in the future. Assessment & Plan (06/06/2020 3:32 PM PATIENT SCHEDULER): Reviewed need to lose weight, reviewed health [...] on file Legal Sex Female 4:30 PM PATIENT SCHEDULER Gender Identity Female 07/22/2023 8:03 AM PATIENT SCHEDULER Sexual Orientation Not on file Last Filed Vital Signs Vital Sign Reading Time Taken Comments Blood Pressure 122/84 07/22/2023 1:51 PM PATIENT SCHEDULER Pulse 80 07/22/2023 1:51 PM PATIENT SCHEDULER Temperature 36.5 C (97.7 F) 07/22/2023 1:51 PM PATIENT SCHEDULER Respiratory Rate 17 07/22/2023 1:51 PM PATIENT SCHEDULER Oxygen Saturation 99% 07/22/2023 1:51 PM PATIENT SCHEDULER Inhaled Oxygen Concentration - - Weight 85.7 kg (189 lb) 07/22/2023 1:51 PM PATIENT SCHEDULER Height 162.6 cm (5' 4.02 ) 07/22/2023 1:51 PM CS T Body Mass Index 32.43 07/22/2023 1:51 PM PATIENT SCHEDULER Plan of Treatment Not on file Insurance [facility] [address] Care Teams Belt Maker Helper Relationship Specialty Start Date End Date Carlos Eduardo [place] [address] PCP - General 06/10/16
--- OUTSIDE RECORDS SUMMARY | 2024-08-11 00:46 | XMS_ITS | Clinical Summary ---
Author Organization [facility] Care Team Providers Care Gage Designer Name Role Phone Unavailable Primary Care Provider Unavailabl e Social History Tobacco Use Types Packs/Day Years Used Date Smoking Tobacco: Never Assessed Comments Unknown Sex and Gender Information Value Date Recorded Sex Assigned at Not on file Legal Sex Female 1:32 PM TANK HOUSE OPERATOR HELPER Gender Identity Not on file Sexual Orientation [...]
--- OUTSIDE RECORDS SUMMARY | 2024-08-11 00:46 | XMS_ITS | Encounter Summary ---
Author Organization [facility] Address [address] [place] [address] Care Team Providers Care Director University Name Role Phone Unavailable Primary Care Provider Unavailabl e Encounter Details Date Type Department Care Team (Late st Contact Info) Description 11/28/2021 Lab Requisition [facility] DermPath Lab [address] [place] [id number] Lito Samayoa MD [address] [place] [place] [address] Social History Tobacco Use Types Packs/Day [...] AM CDT) Case Report Dermatopathology Report Case: [id number] Authorizing Provider: Lito Samayoa MD Collected: 11/27/2021 03:33 AM Ordering Location: [facility] DermPath Lab Received: 11/28/2021 06:40 AM Pathologist: Lulu White MD Specimen: Skin, left wrist 2 4:01 PM CDT DERMATOPATHOLOGY LABORATORY Final Diagnosis Specimen A. SKIN, left wrist: EOSINOPHILIC SPONGIOSIS AND PAPILLARY DERMAL EDEMA (L30.8) (see microscopic description and comment) 2 4:01 PM CDT DERMATOPATHOLOGY LABORATORY Clinical History BP vs. ACD vs. Other. Path# [id number] 2 4:01 PM T DERMATOPATHOLOGY LABORATORY Gross Description Specimen A: Received is one formalin filled container labeled with the patient's name and designated left wrist. The specimen consists of a shave biopsy measuring [id number]. Jar 0. 2 4:01 PM [facility] DERMATOPATHOLOGY LABORATORY Microscopic Description Specimen A. SKIN, [...] tissue for direct immunofluorescence. 2 4:01 PM [facility] DERMATOPATHOLOGY LABORATORY Disclaimer An external and internal [...] purposes. Billing Codes Specimen Charges Stain Charges 67924 1 [id number] 1 2 4:01 PM CDT DERMATOPATHOLOGY LABORATORY Embedded Images 2 4:01 PM T DERMATOPATHOLOGY LABORATORY Pathology/Cytolo gy TISSUE SPECIMEN FROM SKIN / Unknown 11/27/2021 3:33 AM CDT 11/28/2021 6:40 AM CDT Lito Samayoa MD LAB - PATHOLOGY/CYTO LOGY ORDERABLES DERMATOPATHOLOGY LABORATORY [facility] - Department of Dermatology [address] [phone] documented in this encounter Visit Diagnoses Not on filedocumented in this encounter
--- NOTE | 2024-08-11 07:19 | WPDHPUPDATE1 ---
History and Physical Update Update Date/Time: 08/11/24 07:19 History and Physical has been reviewed, including an updated exam of the patient. There are NO changes in the patient's condition. Risks, benefits, and alternatives have been discussed and questions answered. Patient agrees to proceed with procedure.
--- NOTE | 2024-08-11 13:00 | ECG_ITS ---
Test Date: 2024-08-11 13:14:47 Measurements Intervals [place] Rate: 89 P: 58 IL: 148 QRS: 19 QRSD: 88 T: 36 QT: 376 QTc: 460 Interpretive Statements SINUS RHYTHM WITH OCCASIONAL VENTRICULAR PREMATURE COMPLEXES POSSIBLE LEFT ATRIAL ENLARGEMENT POSSIBLE RIGHT VENTRICULAR CONDUCTION DELAY ST DEVIATION AND MODERATE T-WAVE ABNORMALITY, CONSIDER ANTERRIOR ISCHEMIA ABNORMAL ECG No previous ECG available for comparison Electronically Signed On 08-11-2024 13:34:00 CARTOON DESIGNER by Maxwell Rai D.O.
[2024-08-11] MEDS: LACTATED RINGERS 1,000 ML 30 ML IV CONT ×2 (13:25→17:08)
[2024-08-11] MEDS: CELECOXIB 200 MG CAPSULE PO (13:30)
--- NOTE | 2024-08-11 14:49 | P.PNAN_ITS ---
Anes - Initial Pre Proc Eval Procedure: Operation Date: 08/11/24 15:00 Proposed Procedures p Open Reduction Internal Fixaton Left Ankle Fracture - Amado Hodges MD Date/Time: 08/11/24 14:49 Surgeon: Amado Hodges MD Pre Op Diagnosis: Lt Distal Fibula Fracture Patient Data Age: 54 Gender: F Height: 1.63 m Weight: 86.5 kg Last Vital Signs Temp 97.1 F L 08/11/24 12:48 Pulse 93 08/11/24 12:48 Resp 18 08/11/24 12:48 BP 130/91 H 08/11/24 12:48 Pulse Ox 95 08/11/24 12:48 O2 Del Method Room Air 08/11/24 12:48 Allergies Allergy/AdvReac Type Severity Reaction Status Date / Time No Known Allergies Allergy Verified 08/11/24 14:09 Home Medications ?Medication ?Instructions ?Recorded ?Confirmed ?Type atorvastatin 10 mg tablet 10 mg PO DAILY 08/08/24 08/11/24 History naproxen sodium 220 mg capsule 220 mg PO BID PRN pain 08/09/24 08/09/24 History (Aleve) hydrocodone 5 mg-acetaminophen 325 1 tablet PO Q6H PRN pain 08/11/24 08/11/24 History mg tablet Patient hx anesthesia problems: none Family hx anesthesia problems: none Results Review: All pre-operative results and documents have been reviewed as part of the pre- operative evaluation. [facility] Past Medical History Medical History No pertinent past medical history Surgical History Surgical History No pertinent past surgical history Family History Family History Mother Family history non-contributory Social History Social History Smoking packs per day: 1 Smoking cigarettes per day: 20.0 Years smoked: 30 Smoking pack-years: 30.00 Smoking status: Current every day smoker Tobacco type: cigarettes Alcohol intake: current Drinks per week: 17 Living arrangements: with family Gender identity (if verbalized by the patient): Female Spiritual care concerns: No Anes - Eval Final PreProcedure Day of Procedure 08/11/24 14:49 Patient weight: obese Lungs: normal air movement Airway: Mallampati scale class II Neurological: alert and oriented Last oral intake: >/= 8 hours ASA classification: II Emergent: no Anesthetic plan: proceed Anesthesia type and monitoring: general LMA and standard monitoring Results Review: All pre-operative results and documents have been reviewed as part of the pre- operative evaluation. Hyperlipidemia, current smoker 1 ppd, smoked at 1 am today. Informed Consent: The patient's anesthetic plan and its attendant risks and benefits were discussed with the patient/family/POA. Questions were solicited and answers provided to the satisfaction of the patient/family/POA.
[2024-08-11] MEDS: ceFAZolin 2 GM/D5W 50 ML 2 GM/50 ML BAG IVPB (15:02)
[2024-08-11] MEDS: BUPivacaine HCL 0.5% 10 ML AMP 30 ML INFILTRATE (15:40)
--- NOTE | 2024-08-11 17:13 | W.PM.PROC2 ---
Procedure Note - Detailed Date of Procedure 08/11/24 Pre-op Diagnosis Lt Distal Fibula Fracture Post-op Diagnosis Same Procedure Performed ORIF LEFT ANKLE FRACTURE WITH SYNDESMOTIC TIGHTROPE FIXATION. Surgeon Amado Hodges MD Anesthesia General Description of Procedure THE PATIENT WAS TAKEN TO THE OR. THE LEFT LEG WAS PREPPED AND DRAPED IN THE NORMAL FASHION. AN INCISION WAS MADE AT THE DISTAL FIBULA PROXIMALLY. THE WOUND WAS DISSECTED DOWN TO THE FRACTURE SITE. THE FRACTURE WAS REDUCED TO NEAR ANATOMIC POSITION. AN ARTHREX PLATE WAS PLACED SPANNING THE FRACTURE FRAGMENTS AND SCREWS WERE PLACED DISTAL AND PROXIMAL TO THE FRACTURE FRAGMENTS RESPECTIVELY. XRAYS SHOWED HARDWARE AND FRACTURE FRAGMENTS TO BE IN GOOD POSITION. NEXT A TIGHTROPE IMPLANT WAS INSERTED THROUGH THE PLATE AND OUT THE MEDIAL CORTEX OF THE TIBIA. THE COMPONENT WAS TIGHTENED WITH THE ANKLE IN NEUTRAL FLEXION. C ARM WAS USED THE IMAGE THE ANKLE AND IT WAS FOUND THAT HARDWARE WAS IN GOOD POSITION AND THE SYNDESMOSIS AND FIBULA FRACTURE WAS REDUCED WELL. NEXT THE WOUNDS WERE WASHED AND 2-0 SUTURES AND 3-0 SUTURES WERE USED TO APPROXIMATE THE WOUNDS. BE WERE USED TO CLOSE THE SKIN. WOUNDS WERE WASHED THEN PLACED IN A STERILE DRESSING, THEN A PLASTER SPLINT WAS PLACED. PATIENT WAS EXTUBATED AND SENT TO RECOVERY ROOM IN STABLE CONDITION. Estimated Blood Loss 10 Complications No immediate complications Condition Stable
[2024-08-11] MEDS: oxyCODONE HCL (*CRX) 5 MG TAB IR PO (18:26)
== END 2024-08-11 19:13 | disposition home or self-care (01) ==
PROVIDERS: PCP Family Medicine; Visit Provider Orthopaedic Surgery
PROC: (CPT 27792; principal; 2024-08-11 15:00)
DX: S82.62XA Displaced fracture of lateral malleolus of left fibula, initial encounter for closed fracture (principal); S93.432A Sprain of tibiofibular ligament of left ankle, initial encounter; F17.210 Nicotine dependence, cigarettes, uncomplicated; E66.9 Obesity, unspecified; Z68.32 Body mass index [BMI] 32.0-32.9, adult; R94.31 Abnormal electrocardiogram [ECG] [EKG]; X58.XXXA Exposure to other specified factors, initial encounter; Z79.1 Long term (current) use of non-steroidal anti-inflammatories (NSAID); Z79.891 Long term (current) use of opiate analgesic
CPT/HCPCS: 27792; 27829; 93005; 99199; A9270; C1713; J0690; J1100; J1171; J2003; J2250; J2405; J2704; J3010; J7120